=== PATIENT | male | born 1960 | race Caucasian/White ===

== ENCOUNTER 2020-04-16 12:57 | Outpatient (CLI) | payer MEDICAID ==
--- NOTE | 2020-04-16 18:59 | Consultation ---
DATE OF CONSULTATION: 04/16/2020 CONSULTING PHYSICIAN: Ronnie Zamora MD REASON FOR REFERRAL: Referral for screening colonoscopy, abdominal pain, and 30 pounds of weight loss. PAST MEDICAL HISTORY: 1. HIV. 2. Hypertension. 3. Melanoma. PAST SURGICAL HISTORY: Melanoma resection in the left leg. FAMILY HISTORY: Father had coronary artery disease. Mother had lung cancer. SOCIAL HISTORY: Patient denies any tobacco, alcohol, or drug abuse. ALLERGIES: No known drug allergies. REVIEW OF SYSTEMS: A 10-point review of systems was performed and positive for 30 pounds of weight loss. PHYSICAL EXAMINATION: VITAL SIGNS: Temperature 96.9, weight is 246. Vital signs stable. HEENT: Normocephalic, atraumatic. Sclerae anicteric. NECK: Supple. No evidence of obvious lymphadenopathy. CARDIOVASCULAR: Regular rate and rhythm. Plus S1-S2. LUNGS: Clear to auscultation bilaterally. ABDOMEN: Positive bowel sounds. Soft and nontender. No rebound. No guarding. No peritoneal sign. EXTREMITIES: No cyanosis, no clubbing, no edema. ASSESSMENT AND PLAN: This is a 59-year-old male, referred for screening colonoscopy. Patient also has significant weight loss, which we will recommend also get an endoscopy. Patient was informed of the risks and benefits of procedure. The prep was explained to him. We will schedule him as soon as authorization is obtained. Ronnie Zamora M.D. DR: KHALIF JOB#: [id number] CC:
== END 2020-04-16 14:57 | disposition home or self-care (01) ==
LOC: PAN 12:57
DX: R10.9 Unspecified abdominal pain (principal); R63.4 Abnormal weight loss; B20 Human immunodeficiency virus [HIV] disease; I10 Essential (primary) hypertension; Z85.820 Personal history of malignant melanoma of skin
CPT/HCPCS: G0463